=== PATIENT | male | born 1940 | race Caucasian/White ===

== ENCOUNTER 2016-11-03 09:12 | Day surgery (SDC) | payer MEDICARE ==
[~2016-11-03 09:12] MED LIST: EPINEPHRINE INJ 1 MG/10 ML DISP.SYRIN ONE; FLUMAZENIL INJ 0.5 MG/5 ML VIAL ONE; GLUCAGON,HUMAN RECOMB 1 MG INJ ONE; NALOXONE HCL INJ/PF 0.4 MG/1 ML SDV ONE; ONDANSETRON HCL INJ/PF 4 MG/2 ML SDV ONE
[2016-11-03] MEDS: MIDAZOLAM 2 MG/2 ML INJ ONE ×2 (11:13→11:24)
[2016-11-03] MEDS: FENTANYL CITRATE INJ/PF 100 MCG/2 ML AMPUL ONE ×2 (11:15→11:33)
--- NOTE | 2016-11-03 11:53 | PDOC DISCHARGE SUMMARY ---
Discharge Summary (SDC) - Discharge Final Diagnosis: Diverticuloses Date of Surgery: 11/03/16 Discharge Date: 11/03/16 Condition: Good Treatment or Instructions: [facility] [place] [id number] POST ENDOSCOPY DISCHARGE INSTRUCTIONS 1. Diet: Start clear liquids that a regular diet as tolerated. 2. Resume all preoperative medications. All oral anticoagulants and aspirins can be resumed 24 hours after procedure. 3. If a polypectomy was performed some bleeding per rectum may occur. This should stop within 3 days. If not, please contact the office. 4. If you had a colonoscopy you may experience some bloating and delayed return of normal bowel function for several days, your regular bowel movement pattern should resume within a week. 5. Please contact [facility] at to make an appointment with Dr. Chavez for 1 to 3 weeks following procedure. 6. If you have any questions or concerns regarding your care,treatment plan or follow up, please contact our office. 7. Per clinical guidelines we recommend you discuss in 10 years a repeat colonoscopy if deemed appropriate by physician based on age. Referrals: LEV KUMARI III, MD [Primary Care Provider] - Discharge Activity: Activity As Tolerated Home Care Assistance: None Needed Report the Following to Your Physician Immediately: Shortness of Breath, Increase in Pain, Fever over 101 Degrees
[2016-11-03 12:49] VITALS: BP 110/89
--- NOTE | 2016-11-03 13:02 | OPERATIVE REPORT E ---
Operative Report NAME: SYLVIA SCHMID : 1940 AGE: 76Y DATE OF SURGERY: 11/03/2016 ROOM: PREOPERATIVE DIAGNOSIS: Personal history of colonic tumor, status post right hemicolectomy. POSTOPERATIVE DIAGNOSES: 1. Personal history of colonic tumor, status post right hemicolectomy. 2. Diverticulosis. OPERATION: Total colonoscopy to ileocolonic anastomosis. SURGEON: ROBERTO DELGADILLO M.D. ANESTHESIA: IV sedation. COMPLICATIONS: None. ESTIMATED BLOOD LOSS: None. DRAINS: None. TISSUE REMOVED OR ALTERED: None. SUMMARY OF PROCEDURE: Patient was brought from the preop holding area to the main endoscopy suite where IV sedation was induced. The patient was placed in the left lateral decubitus position. Surgical plan and surgical time-out were conducted. A rectal exam was performed. There were external hemorrhoids noted. The posterior surface of the prostate gland was slightly enlarged. A flexible adult colonoscope was advanced to the anorectal canal all the way to the ileocolonic anastomosis. The findings were significant for a previous right hemicolectomy. Photos were taken. The terminal ileum and the blind end of the transverse colon appeared normal. Photos were taken. No biopsies were taken. The scope was withdrawn the length of the transverse colon to the left colon which were both normal. There were scattered diverticuloses of the sigmoid colon. No other pathology was seen. This was an excellent study and a well-prepped bowel. The scope was withdrawn from the patient's anus. He tolerated the procedure well. Based on age, surveillance colonoscopy may be considered in the future but will be discussed with the patient in approximately 5 years. DICTATING PHYSICIAN: ROBERTO DELGADILLO M.D. [id number] PHY#: [id number] ID: [id number] JOB#: [id number] ACCT: [id number] cc:ROBERTO DELGADILLO M.D. >
== END 2016-11-03 12:58 | disposition home or self-care (01) ==
LOC: END 09:12
PROVIDERS: ATTEND Surgery
PROC: 0DJD8ZZ Inspection of Lower Intestinal Tract, Via Natural or Artificial Opening Endoscopic (ICD-10-PCS; principal; 2016-11-03 10:00)
DX: Z12.11 Encounter for screening for malignant neoplasm of colon (principal); K57.30 Diverticulosis of large intestine without perforation or abscess without bleeding; N40.0 Benign prostatic hyperplasia without lower urinary tract symptoms; Z86.010 Personal history of colon polyps; E11.9 Type 2 diabetes mellitus without complications; M10.9 Gout, unspecified; I10 Essential (primary) hypertension; E78.00 Pure hypercholesterolemia, unspecified; Z86.711 Personal history of pulmonary embolism; Z87.891 Personal history of nicotine dependence; Z79.01 Long term (current) use of anticoagulants; Z79.899 Other long term (current) drug therapy; Z90.49 Acquired absence of other specified parts of digestive tract
CPT/HCPCS: 82962; G0121; J2250; J3010; 45378; J0171; J1610; J2310; J2405; J3490

== ENCOUNTER → 2018-01-23 | Outpatient (CLI) | payer MEDICARE ==
[2018-01-23 13:22] LABS: INTERNATIONAL RATION (INR) 2.42; PROTHROMBIN TIME 27.5 SEC (11.4-15.4)
== END ==
LOC: OD 11:53
PROVIDERS: ATTEND Family Medicine
DX: Z51.81 Encounter for therapeutic drug level monitoring (principal); Z79.01 Long term (current) use of anticoagulants
CPT/HCPCS: 36415; 85610

== ENCOUNTER → 2018-05-29 | Outpatient (CLI) | payer MEDICARE ==
[2018-05-29 12:18] LABS: ALANINE AMINOTRANSFERASE 25 U/L (21-72); ASPARTATE AMINO TRANSFERASE 27 U/L (17-59)
[2018-05-29 12:22] LABS: INTERNATIONAL RATION (INR) 2.21; PROTHROMBIN TIME 25.6 SEC (11.4-15.4)
== END ==
LOC: OD 11:25
PROVIDERS: ATTEND Family Medicine
DX: B35.1 Tinea unguium (principal); Z79.01 Long term (current) use of anticoagulants
CPT/HCPCS: 36415; 84450; 84460; 85610